=== PATIENT | male | born 1995 | race Hispanic/Latino ===

== ENCOUNTER 2018-05-12 22:07 | Emergency (ER) | payer OTHER | END 2018-05-12 22:29 | disposition home or self-care (01) | LOC: EDH 22:07 | DX: Z02.83 Encounter for blood-alcohol and blood-drug test (principal) ==

== ENCOUNTER 2018-05-15 16:01 | Emergency (ER) | payer OTHER ==
[~2018-05-15] VITALS: Ht 160 cm; Wt 80.7 kg
[2018-05-15 16:37] LABS: BASOPHILS % (AUTO) 0.4 % (0.0-5.0); EOSINOPHILS % (AUTO) 0.1 % (0.0-8.0); HEMATOCRIT 45.6 % (42-54); LYMPHOCYTES % (AUTO) 12.2 % (21.0-51.0); MEAN CORPUSCULAR HEMOGLOBIN 31.4 pg (27.0-33.0); MEAN CORPUSCULAR HGB CONC 34.1 g/dL (32.0-36.0); MEAN CORPUSCULAR VOLUME 92.1 fL (79-99); MONOCYTES % (AUTO) 5.4 % (3.0-13.0); NEUTROPHILS % (AUTO) 81.9 % (40.0-77.0); PLATELET COUNT (AUTO) 250 K/uL (130-400); RED BLOOD CELL COUNT(AUTO) 4.95 MIL/uL (4.50-6.20); RED CELL DISTRIBUTION WIDTH 13.6 % (11.0-15.5)
[2018-05-15 16:56] LABS: ALBUMIN 5.2 g/dL (3.5-5.0); BILIRUBIN,TOTAL 2.5 mg/dL (0.2-1.0); TOTAL PROTEIN, SERUM 9.4 g/dL (6.0-8.3)
[2018-05-15] MEDS ORDERED: LORAZEPAM 2 MG/ML 1 ML VIAL ONE (17:04)
[2018-05-15 18:55] LABS: BILIRUBIN,URINE Negative (NEGATIVE); COLOR,URINE Yellow (YELLOW); GLUCOSE, URINE (UA) Negative (NEGATIVE); KETONES,URINE >=80 mg/dL (NEGATIVE); LEUKOCYTE ESTERASE ,URINE Negative (NEGATIVE); NITRATE,URINE Negative (NEGATIVE); OCCULT BLOOD,URINE Trace (NEGATIVE); PROTEIN,URINE POS 2+ (NEGATIVE)
[2018-05-15 18:56] LABS: APPEARANCE,URINE SLIGHTLY CLOUDY (CLEAR)
[2018-05-15 19:03] LABS: AMPHET/METH SCREEN,URINE NEGATIVE (NEGATIVE); BARBITURATE SCREEN, URINE NEGATIVE (NEGATIVE); BENZODIAZEPINES SCREEN,URINE POSITIVE (NEGATIVE); CANNABINOID SCREEN,URINE POSITIVE (NEGATIVE); COCAINE SCREEN,URINE NEGATIVE (NEGATIVE); OPIATE SCREEN,URINE NEGATIVE (NEGATIVE); PHENCYCLIDINE SCREEN,URINE NEGATIVE (NEGATIVE)
[2018-05-15 19:28] LABS: BACTERIA,URINE Few /HPF (None Seen); SQUAMOUS EPITHELIAL CELL,UR Rare /HPF (0-2)
[2018-05-15 19:29] LABS: MUCUS,URINE Moderate LPF (None Seen); SPERM,URINE Few /HPF (None Seen)
[2018-05-15] MEDS ORDERED: QUETIAPINE FUMARATE 100 MG TAB PO SCH (22:00)
== END 2018-05-15 22:00 | disposition home or self-care (01) ==
LOC: EEVIPCON 16:01 → EDH 16:01
DX: R56.9 Unspecified convulsions (principal); Z72.0 Tobacco use
CPT/HCPCS: 36415; 70450; 80053; 80305; 81001; 82550; 82948; 84484; 85025; 93005; 96374; 99285; J2060

== ENCOUNTER 2019-04-19 09:44 | Emergency (ER) | payer OTHER ==
[2019-04-19] MEDS ORDERED: ACETAMINOPHEN EXTRA STRENGTH 500 MG TABLET ONE ×2 (09:57→09:58)
== END 2019-04-19 11:14 | disposition home or self-care (01) ==
LOC: EDH 09:44
DX: S16.1XXA Strain of muscle, fascia and tendon at neck level, initial encounter (principal); S10.93XA Contusion of unspecified part of neck, initial encounter; S80.01XA Contusion of right knee, initial encounter; S00.31XA Abrasion of nose, initial encounter; S09.90XA Unspecified injury of head, initial encounter; F32.9 Major depressive disorder, single episode, unspecified; Z72.0 Tobacco use; Y04.8XXA Assault by other bodily force, initial encounter; Y93.89 Activity, other specified; Y92.149 Unspecified place in prison as the place of occurrence of the external cause; Y99.8 Other external cause status
CPT/HCPCS: 70360

== ENCOUNTER 2022-11-04 14:15 | Emergency (ER) | payer OTHER ==
[~2022-11-04] VITALS: Ht 162.6 cm; Wt 90.7 kg
[2022-11-04 16:33] LABS: BASOPHILS % (AUTO) 1.1 % (0.0-5.0); EOSINOPHILS % (AUTO) 2.9 % (0.0-8.0); HEMATOCRIT 43.6 % (42-54); LYMPHOCYTES % (AUTO) 39.4 % (21.0-51.0); MEAN CORPUSCULAR HEMOGLOBIN 31.2 pg (27.0-33.0); MEAN CORPUSCULAR HGB CONC 34.2 g/dL (32.0-36.0); MEAN CORPUSCULAR VOLUME 91.2 fL (79-99); MONOCYTES % (AUTO) 7.7 % (3.0-13.0); NEUTROPHILS % (AUTO) 48.6 % (40.0-77.0); PLATELET COUNT (AUTO) 258 K/uL (130-400); RED BLOOD CELL COUNT(AUTO) 4.78 MIL/uL (4.50-6.20); RED CELL DISTRIBUTION WIDTH 12.2 % (11.0-15.5); WHITE BLOOD COUNT (AUTO) 6.6 K/uL (4.8-10.8)
[2022-11-04 17:06] LABS: CREATININE 0.9 mg/dL (0.5-1.5); POTASSIUM 3.6 mmol/L (3.5-5.1)
[2022-11-04 17:06] LABS: APPEARANCE,URINE CLEAR (CLEAR); BILIRUBIN,URINE NEGATIVE (NEGATIVE); COLOR,URINE YELLOW (YELLOW); GLUCOSE, URINE (UA) NEGATIVE (NEGATIVE); KETONES,URINE NEGATIVE (NEGATIVE); LEUKOCYTE ESTERASE ,URINE NEGATIVE Leu/uL (NEGATIVE); NITRATE,URINE NEGATIVE (NEGATIVE); OCCULT BLOOD,URINE NEGATIVE (NEGATIVE); PROTEIN,URINE 20 mg/dL (NEGATIVE)
[2022-11-04 17:10] LABS: BACTERIA,URINE RARE /HPF (None Seen); MUCUS,URINE MOD LPF (None Seen); SQUAMOUS EPITHELIAL CELL,UR RARE /HPF (0-2)
[2022-11-04 17:10] LABS: ALBUMIN 4.5 g/dL (3.5-5.0); TOTAL PROTEIN, SERUM 7.8 g/dL (6.0-8.3)
[2022-11-04 17:13] LABS: AMPHET/METH SCREEN,URINE NEGATIVE (NEGATIVE); BARBITURATE SCREEN, URINE NEGATIVE (NEGATIVE); BENZODIAZEPINES SCREEN,URINE NEGATIVE (NEGATIVE); CANNABINOID SCREEN,URINE POSITIVE (NEGATIVE); COCAINE SCREEN,URINE NEGATIVE (NEGATIVE); OPIATE SCREEN,URINE NEGATIVE (NEGATIVE); PHENCYCLIDINE SCREEN,URINE NEGATIVE (NEGATIVE)
[2022-11-04] MEDS ORDERED: AZITHROMYCIN 250 MG TABLET PO ONE (18:00)
[2022-11-04] MEDS ORDERED: ACETAMINOPHEN 325 MG TAB PO ONE (18:00)
[2022-11-04] MEDS ORDERED: CEFTRIAXONE 1G VIAL IVP ONE (18:00)
[2022-11-04] MEDS ORDERED: 0.9%NACL 1000ML 1,000 ML IV ONE (18:00)
[2022-11-04] MEDS ORDERED: KETOROLAC 30MG VIAL (30MG/ML) IVP ONE (18:00)
[2022-11-04] MEDS ORDERED: PHENAZOPYRIDINE HCL 200 MG TABLET PO ONE (18:00)
[2022-11-04] MEDS ORDERED: ONDANSETRON 4MG INJ IVP ONE (18:00)
[2022-11-04] MEDS ORDERED: IOHEXOL-350 75 ML VIAL IV ONE (18:16)
[2022-11-04] MEDS ORDERED: FLUC150T48 PO (20:18)
[2022-11-04] MEDS ORDERED: ACET-2079 PO (20:18)
[2022-11-04] MEDS ORDERED: DOXY100C5 PO (20:18)
[2022-11-04] MEDS ORDERED: IBUP-2070 PO (20:18)
[2022-11-04] MEDS ORDERED: MICO45CR44 (20:18)
[2022-11-04] MEDS ORDERED: PHEN-776 PO (20:18)
[2022-11-04 20:20] VITALS: BP 132/80
== END 2022-11-04 20:43 | disposition home or self-care (01) ==
LOC: EDH 14:15
DX: N39.0 Urinary tract infection, site not specified (principal); N48.1 Balanitis; K59.00 Constipation, unspecified; R10.2 Pelvic and perineal pain
CPT/HCPCS: 99285; 74177; 96374; 96375; 96361; 80053; 80305; 83690; 85025; 87797; 87486; 36415; 81001; J0696; J2405; J1885; Q9967

== ENCOUNTER 2022-11-12 11:53 | Emergency (ER) | payer OTHER ==
[~2022-11-12] VITALS: Ht 162.6 cm; Wt 90.7 kg
[~2022-11-12 11:53] MED LIST: ACET-2079 PO; DOXY100C5 PO; FLUC150T48 PO; IBUP-2070 PO; MICO45CR44; PHEN-776 PO
[2022-11-12 12:01] VITALS: BP 134/95
[2022-11-12] MEDS ORDERED: 0.9%NACL 1000ML 1,000 ML IV ONE (12:30)
[2022-11-12 12:50] LABS: CREATININE 0.9 mg/dL (0.5-1.5); POTASSIUM 3.8 mmol/L (3.5-5.1); TOTAL PROTEIN, SERUM 8.5 g/dL (6.0-8.3)
[2022-11-12 12:55] LABS: EOSINOPHILS % (AUTO) 1.5 % (0.0-8.0); HEMATOCRIT 46.7 % (42-54); MEAN CORPUSCULAR HEMOGLOBIN 30.7 pg (27.0-33.0); MEAN CORPUSCULAR HGB CONC 33.8 g/dL (32.0-36.0); MEAN CORPUSCULAR VOLUME 90.9 fL (79-99); MONOCYTES % (AUTO) 7.6 % (3.0-13.0); NEUTROPHILS % (AUTO) 62.5 % (40.0-77.0); PLATELET COUNT (AUTO) 268 K/uL (130-400); RED BLOOD CELL COUNT(AUTO) 5.14 MIL/uL (4.50-6.20)
[2022-11-12] MEDS ORDERED: AZITHROMYCIN 250 MG TABLET PO ONE (13:30)
[2022-11-12] MEDS ORDERED: CEFTRIAXONE 500MG VIAL IM SCH (13:30)
[2022-11-12] MEDS ORDERED: FAMOTIDINE 20MG VIAL IV ONE (13:30)
[2022-11-12] MEDS ORDERED: ONDANSETRON 4MG INJ IVP ONE (13:30)
[2022-11-12] MEDS ORDERED: MORPHINE 4 MG SYG IVP ONE (13:30)
[2022-11-12 14:17] LABS: APPEARANCE,URINE CLEAR (CLEAR); BILIRUBIN,URINE NEGATIVE (NEGATIVE); COLOR,URINE LIGHT-YELLOW (YELLOW); GLUCOSE, URINE (UA) NEGATIVE (NEGATIVE); KETONES,URINE 20 mg/dL (NEGATIVE); LEUKOCYTE ESTERASE ,URINE NEGATIVE Leu/uL (NEGATIVE); NITRATE,URINE NEGATIVE (NEGATIVE); OCCULT BLOOD,URINE NEGATIVE (NEGATIVE); PH,URINE 6.5 (5.0-8.0); PROTEIN,URINE NEGATIVE (NEGATIVE); UROBILINOGEN,URINE 0.2 mg/dL (0.2-1.0)
[2022-11-12 14:20] LABS: MUCUS,URINE RARE LPF (None Seen); RBC,URINE 0-1 /HPF (0-1)
[2022-11-12] MEDS ORDERED: ONDA4TAB10 PO (14:40)
== END 2022-11-12 14:53 | disposition home or self-care (01) ==
LOC: EDH 11:53
DX: R30.0 Dysuria (principal); R11.2 Nausea with vomiting, unspecified; R42 Dizziness and giddiness; R50.9 Fever, unspecified; Z79.899 Other long term (current) drug therapy
CPT/HCPCS: 99285; 74176; 96374; 96375; 96361; 80053; 83690; 85025; 87797; 87486; 81001; 36415; 96372; J3490; J7030; J2405; J2270; J0696

== ENCOUNTER 2022-11-15 13:24 | Emergency (ER) | payer OTHER ==
[~2022-11-15] VITALS: Ht 160 cm; Wt 90.7 kg
[~2022-11-15 13:24] MED LIST changes: +ONDA4TAB10 PO
[2022-11-15 13:33] VITALS: BP 136/84
[2022-11-15] MEDS ORDERED: ACYCLOVIR 800 MG TABLET PO ONE (14:00)
[2022-11-15] MEDS ORDERED: IBUPROFEN 600 MG TABLET PO ONE (15:00)
[2022-11-15] MEDS ORDERED: ACYC15OI7 TP (16:02)
[2022-11-15] MEDS ORDERED: ACYC-138 PO (16:02)
[2022-11-16] MEDS ORDERED: ACYCLOVIR OINTMENT 30GM TP SCH (09:00)
== END 2022-11-15 16:06 | disposition home or self-care (01) ==
LOC: EDH 13:24
DX: A60.02 Herpesviral infection of other male genital organs (principal); Z79.899 Other long term (current) drug therapy

== ENCOUNTER 2022-11-27 16:15 | Emergency (ER) | payer OTHER ==
[~2022-11-27] VITALS: Ht 160 cm; Wt 90.7 kg
[~2022-11-27 16:15] MED LIST changes: +ACYC-138 PO; +ACYC15OI7 TP
[2022-11-27 16:42] VITALS: BP 128/88
[2022-11-27 21:16] LABS: APPEARANCE,URINE CLEAR (CLEAR); BILIRUBIN,URINE NEGATIVE (NEGATIVE); COLOR,URINE LIGHT-YELLOW (YELLOW); GLUCOSE, URINE (UA) NEGATIVE (NEGATIVE); KETONES,URINE NEGATIVE (NEGATIVE); LEUKOCYTE ESTERASE ,URINE NEGATIVE Leu/uL (NEGATIVE); NITRATE,URINE NEGATIVE (NEGATIVE); OCCULT BLOOD,URINE NEGATIVE (NEGATIVE); PROTEIN,URINE NEGATIVE (NEGATIVE); UROBILINOGEN,URINE 0.2 mg/dL (0.2-1.0)
== END 2022-11-27 21:25 | disposition home or self-care (01) ==
LOC: EDH 16:15
DX: S30.852A Superficial foreign body of penis, initial encounter (principal); N48.89 Other specified disorders of penis; Z79.899 Other long term (current) drug therapy; X58.XXXA Exposure to other specified factors, initial encounter; Y93.89 Activity, other specified; Y92.89 Other specified places as the place of occurrence of the external cause; Y99.8 Other external cause status
CPT/HCPCS: 76870; 81003; 87486; 87797

== ENCOUNTER 2022-12-20 17:14 | Emergency (ER) | payer OTHER ==
[~2022-12-20] VITALS: Ht 172.7 cm; Wt 90.7 kg
[2022-12-20 17:38] VITALS: BP 135/94
[2022-12-20] MEDS ORDERED: DOXY-469 PO (19:40)
[2022-12-20] MEDS ORDERED: IBUP-2070 PO (19:41)
[2022-12-20] MEDS ORDERED: CEFTRIAXONE 500MG VIAL IM SCH (20:00)
[2022-12-20] MEDS ORDERED: CEFTRIAXONE 500MG VIAL ONE (20:01)
[2022-12-20] MEDS ORDERED: LIDOCAINE HCL 1% 20 ML VIAL ONE (20:01)
== END 2022-12-20 20:31 | disposition home or self-care (01) ==
LOC: EDH 17:14
DX: B00.89 Other herpesviral infection (principal); N50.812 Left testicular pain; N44.00 Torsion of testis, unspecified; N45.1 Epididymitis; Z79.899 Other long term (current) drug therapy
CPT/HCPCS: 99285; 76870; 96372; J0696

== ENCOUNTER 2025-07-20 17:16 | Emergency (ER) | payer BC ==
[~2025-07-20] VITALS: Ht 160 cm; Wt 95.3 kg
[2025-07-20 17:30] VITALS: BP 132/81; PULSE 72; RESP 20; TEMP 98.5; O2SAT 97
--- NOTE | 2025-07-20 17:36 | ERN ---
ED Note History of Present Illness Stated Complaint: ABD PAIN Chief Complaint: Abdominal Pain Time Seen by MD: 17:21 Dictation: PATIENT IS A 30-YEAR-OLD MALE COMING IN TODAY WITH COMPLAINTS OF BURNING URINATION ONSET SEVERAL DAYS AGO. HE STATES ONE OF MY GIRLFRIEND'S CALLED ME AND SAID SHE HAD SYPHILIS AND I WAS JUST WITH HER THREE WEEKS AGO. NO FEVER NO CHILLS NO NAUSEA VOMITING. HE WANTS TO BE TESTED. PRIMARY CARE DOCTOR Allergies: Coded Allergies: No Known Drug Allergies (Verified Allergy, Unknown, 05/15/18) Home Meds Active Scripts Ibuprofen (Ibuprofen) 600 Mg Tablet, 600 MG PO Q6H PRN for PAIN, #30 TAB Prov:WOODY ARCOS [facility] 12/20/22 Doxycycline Monohydrate (Doxycycline Monohydrate) 100 Mg Capsule, 1 CAP PO BID for 10 Days, #20 CAP 0 Refills Prov:WOODY RACOS [facility] 12/20/22 Acyclovir (Acyclovir) 15 Gm Oint...g., 15 GM TP 6x/day for 7 Days, #30 TUBE 3 Refills Prov:ROXY BELTRAN NP 11/15/22 Acyclovir (Acyclovir) 800 Mg Tablet, 1 TAB PO 5XDAY for 10 Days, #50 TAB 0 Refills Prov:ROXY BELTRAN NP 11/15/22 Ondansetron (Ondansetron Odt) 4 Mg Tab.rapdis, 4 MG PO TID PRN for NAUSEA/VOMITING, #10 TAB Prov:DAKOTAH TONG [facility] 11/12/22 Phenazopyridine HCl (Pyridium) 200 Mg Tablet, 200 MG PO TID for 3 Days, #9 TAB Prov:SANTOS FRANCISCO 11/04/22 Ibuprofen (Ibuprofen) 600 Mg Tablet, 600 MG PO Q6H PRN for PAIN, #15 TAB Prov:SANTOS FRANCISCO 11/04/22 Miconazole Nitrate (Miconazole Nitrate) 45 Gm Cream.appl, 1 APPL .AD BID for to head of penis for 14 Days, #30 G Prov:SANTOS FRANCISCO 11/04/22 Fluconazole (Fluconazole) 150 Mg Tablet, 150 MG PO ONCE for repeat in 3 days for 3 Days, #2 TAB Prov:SANTOS FRANCISCO 11/04/22 Doxycycline Hyclate (Doxycycline Hyclate) 100 Mg Capsule, 100 MG PO BID for 10 Days, #20 CAP Prov:SANTOS FRANCISCO GINGER 11/04/22 Acetaminophen with Codeine (Acetaminophen-Cod #3 Tablet) 1 Each Tablet, 1 TAB PO Q4H PRN for R10.9 for 3 Days, #6 TAB Prov:SANTOS FRANCISCO GINGER 11/04/22 Past Medical History Past Medical History: No Pertinent History Surgical History: None RN Note Reviewed/Agreed w/PFSH: Yes Review of System Dictation CONSTITUTIONAL: NEGATIVE EXCEPT FOR HPI HEAD/FACE: NEGATIVE EXCEPT FOR HPI EENT: NEGATIVE EXCEPT FOR HPI RESPIRATORY: NEGATIVE EXCEPT FOR HPI GASTROINTESTINAL/ABDOMINAL: NEGATIVE EXCEPT FOR HPI GENITOURINARY: NEGATIVE EXCEPT FOR HPI DYSURIA MUSCULOSKELETAL: NEGATIVE EXCEPT FOR HPI INTEGUMENTARY: NEGATIVE EXCEPT FOR HPI NEUROLOGICAL/PSYCH: NEGATIVE EXCEPT FOR HPI HEMATOLOGIC/LYMPHATIC: NEGATIVE EXCEPT FOR HPI ALL SYSTEMS NEGATIVE, EXCEPT NOTED ABOVE. 13 POINT REVIEW OF SYSTEMS ASSESSED AND ALL NEGATIVE EXCEPT FOR ABOVE. Initial Vital Sign VS Vital Signs Date Time Temp Pulse Resp B/P (MAP) Pulse Ox O2 Delivery O2 Flow Rate FiO2 07/20/25 17:22 98.8 97 18 140/85 99 Physical Exam Dictation VITAL SIGNS REVIEWED GENERAL APPEARANCE: ALERT, ORIENTED X 3, NO ACUTE DISTRESS, WELL DEVELOPED, NOURISHED. NO PAIN HEAD AND FACE: NON-TRAUMATIC. EYES: PERRL, PINK CONJUNCTIVAS, EYELID NO TRAUMA, ANTERIOR CHAMBER WITH ARCUS SENILIS. EARS: PINNAS INTACT AND NO SIGNS OF TRAUMA OR ERYTHEMA EAR CANALS CLEAR AND NO DISCHARGE TM NO ERYTHEMA NOSE: NO DISCHARGE, NO BLEEDING. OROPHARYNX: MOUTH NORMAL, TONGUE PINK, PHARYNX CLEAR,NO ERYTHEMA, TONSILS NO EXUDATES, NO ABSCESSES NOTED, MUCOUS MEMBRANE MOIST NECK: SUPPLE, NON-TENDER, NO THYROMEGALY, NO MASSES, NO JVD, NO BRUITS BREAST:DEFERRED CHEST:NO TENDERNESS, NO CREPITUS, NO PARADOXICAL MOVEMENT, NO RETRACTIONS LUNGS:CLEAR, WELL-VENTILATED, SYMMETRIC, NO RALES, NO WHEEZING, NO RHONCHI, NO STRIDOR, GOOD BREATH SOUNDS BILATERALLY HEART: REGULAR RATE, REGULAR RHYTHM, NO MURMUR, NO GALLOPS VASCULAR: NO PERIPHERAL EDEMA, ABDOMEN: SOFT, POSITIVE BOWEL SOUNDS, NONDISTENDED, NO GUARDING, NONTENDER, NO REBOUND, NO MASSES NO HEPATOMEGALY, NO SPLENOMEGALY, NO CM'S SIGN, NO HERNIAS. RECTAL: DEFERRED GENITAL: DEFERRED NEUROLOGICAL: NORMAL SPEECH, MOTOR FUNCTION INTACT, SENSORY FUNCTION INTACT MUSCULOSKELETAL: NECK NONTENDER, FULL RANGE OF MOTION, BACK NONTENDER, FULL RANGE OF MOTION, EXTREMITIES: NONTENDER, FULL RANGE OF MOTION SKIN: COLOR PINK, DRY, NO TURGOR, NO RASH, NO LACERATIONS, NO ABRASIONS, NO CONTUSIONS. LYMPHATIC: DEFERRED Results (Laboratory/Radiology) Labs Reviewed?: Yes ED Course ED Course Orders Procedure Category Date Status Time Ceftriaxone 1g Vial PHA 07/20/25 Verified (Rocephine 1g Inj) 17:30 Azithromycin PHA 07/20/25 Verified (Zithromax) 17:30 Chlamydia & Gc Pcr MONICA 07/20/25 Verified 17:28 Vital Signs Date Time Temp Pulse Resp B/P (MAP) Pulse Ox O2 Delivery O2 Flow Rate FiO2 07/20/25 17:22 98.8 97 18 140/85 99 1730/I EXPLAINED TO PATIENT THAT I WOULD COLLECT URINE FOR GC I WOULD TREAT HIM EMPIRICALLY WITH ROCEPHIN 1 G AND ZITHROMAX 1000 MG P.O. HE WILL BE DISCHARGED HOME WITH DOXYCYCLINE TOLD [facility] THE NEXT 1-2 DAYS FOR MANAGEMENT Medical Decision Making MDM MEDICAL DECISION-MAKING BASED ON EMPIRIC TREATMENT FOR STI EXPOSURE PATIENT RECEIVED ROCEPHIN 1 G AND AZITHROMYCIN 1 G P.O. URINE FOR GC WAS SENT TO LAB. PATIENT WILL BE DISCHARGED HOME WITH DOXYCYCLINE AND TOLD NO SEX UNTIL CLEARED BY [facility]. HE SAID HE WILL GO TO [facility] TOMORROW WITHOUT FAIL DX & DISP Disposition: Discharge Departure Impression: Primary Impression: Possible exposure to STI Condition: Stable Scripts Doxycycline Monohydrate (Doxycycline Monohydrate) 100 Mg Tablet 1 TAB PO BID for 10 Days, #20 TAB 0 Refills Prov: KOBE ZAMBRANO [employer] 07/20/25 Additional Instructions: FOLLOW-UP WITH PRIMARY CARE PROVIDER IN 1 TO 2 DAYS. TAKE MEDICATIONS DIRECTED HERE IN THE EMERGENCY ROOM. OKAY TO CONTINUE HOME MEDICATIONS UNLESS OTHERWISE DISCUSSED DURING YOUR VISIT IN THE EMERGENCY ROOM TODAY. RETURN TO YOUR NEAREST EMERGENCY ROOM IF SYMPTOMS WORSEN OR IF THERE IS NO IMPROVEMENT. CALL 911 IF YOU NEED IMMEDIATE ASSISTANCE. TAKE TYLENOL OR MOTRIN OV SV-CEL-GNWESOM NEEDED AND IF NO CONTRAINDICATIONS ARE PRESENT. INCREASE ORAL HYDRATION. A WOUND CULTURE OR URINE CULTURE WAS ORDERED HERE IN THE EMERGENCY ROOM DEPARTMENT PLEASE FOLLOW-UP WITH PRIMARY CARE PROVIDER AND ADVISE THEM TO GET REPEAT PORTS FROM OUR FACILITY. IF YOU HAD ANY RUPA WRAP/SPLINTS THAT WERE APPLIED HERE, PLEASE DO NOT REMOVE THEM UNTIL YOU SEE YOUR PRIMARY CARE OR SPECIALTY. TAKE DOXYCYCLINE DIRECTED UNTIL GONE. NO SEX OF ANY KIND UNTIL CLEARED BY [facility] CALL THE OFFICE TOMORROW IN [place] AT [phone] FOR FOLLOW UP Referrals: NONE (PCP) Time of Disposition: 17:33 I have reviewed the case, and I agree with, Diagnosis and Plan KOBE ZAMBRANO [facility] Jul 20, 2025 17:36
[2025-07-20] MEDS: AZITHROMYCIN 250 MG TABLET PO ONE (18:04)
== END 2025-07-20 18:04 | disposition home or self-care (01) ==
LOC: EDH 17:16
DX: R30.9 Painful micturition, unspecified (principal); Z20.2 Contact with and (suspected) exposure to infections with a predominantly sexual mode of transmission
CPT/HCPCS: 99284; 87491; 87591; 96372; J0696